=== PATIENT | male | born 1965 ===

== ENCOUNTER 2017-02-27 05:13 | Emergency (ER) | payer OTHER, MEDICAID ==
[2017-02-27 05:29] VITALS: O2SAT 97
[2017-02-27] MEDS ORDERED: Naproxen 550 mg Tab PO STA (05:31)
[2017-02-27] MEDS ORDERED: Naproxen 550 mg Tab PO ONE (05:36)
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
[2017-02-27 06:26] VITALS: BP 124/81; PULSE 89; RESP 17; TEMP 98.2
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
== END 2017-02-27 06:13 | disposition home or self-care (01) ==
LOC: C.ER 05:13
DX: S13.4XXA Sprain of ligaments of cervical spine, initial encounter (principal); V49.40XA Driver injured in collision with unspecified motor vehicles in traffic accident, initial encounter